=== PATIENT | male | born 1960 | race African-American/Black ===

== ENCOUNTER 2019-03-01 13:37 | Outpatient (CLI) | payer MEDICAID ==
[~2019-03-01] VITALS: Ht 190.5 cm; Wt 116.1 kg
[2019-03-01] MEDS ORDERED: ATORVASTATIN CA20 MG ORAL (15:11)
[2019-03-01] MEDS ORDERED: TRAMADOL HCL50 MG ORAL (15:11)
[2019-03-01] MEDS ORDERED: OMEPRAZOLE40 M1 ORAL (15:11)
[2019-03-01] MEDS ORDERED: ASPIRIN EC81 MG ORAL (15:11)
[2019-03-01 15:12] VITALS: BP 139/83
--- NOTE | 2019-03-25 02:15 | Consultation ---
DATE OF CONSULTATION: 03/01/2019 CHIEF COMPLAINT: Abdominal pain. HISTORY OF PRESENT ILLNESS: This is a 59-year-old male with numerous complaints, which I will dictate in a second, who was referred to us for evaluation of abdominal pain. Because of the abdominal pain, he has acid reflux. He has constipation. He has bloating. He had an endoscopy and colonoscopy before. He was told he had hiatal hernia. He has colonic polyps. He has diverticulosis. He has fatty liver. He has hemorrhoids. The patient mainly states he has a lot of pain and constipation that responds partially to Linzess. The patient had a CT in January of 2017. Also, the patient was seen in the ER and has been followed by pain management for his pain. He has been evaluated at [facility] also. He had an MRI and CT, I do not have the results of that. PAST MEDICAL HISTORY: 1. Hypertension. 2. Coronary artery disease. 3. Depression. 4. Sleep apnea. PAST SURGICAL HISTORY: Stent placement. MEDICATIONS: Tramadol, aspirin, atorvastatin, and omeprazole. ALLERGIES: No known drug allergies. FAMILY HISTORY: No family history of GI malignancies. SOCIAL HISTORY: The patient denies any tobacco, alcohol, or drug abuse. REVIEW OF SYSTEM: As dictated in HPI. PHYSICAL EXAMINATION: VITAL SIGNS: Temperature is 97.6, blood pressure 139/83, pulse 69, and respirations 20. HEENT: Normocephalic and atraumatic. Sclerae is anicteric. NECK: Supple. No obvious evidence of lymphadenopathy. CARDIOVASCULAR: Regular rate and rhythm. Plus S1 and S2. No obvious murmur. LUNGS: Clear to auscultation bilaterally. ABDOMEN: Soft. Minimal tenderness to palpation in the epigastric area. No rebound. No guarding. No peritoneal sign. EXTREMITIES: No cyanosis, no clubbing, no edema. ASSESSMENT/PLAN: The patient is an unfortunate male with numerous medical problems. He recently had a colonoscopy in August of 2018, so we are not going to repeat the colonoscopy. For the constipation, we will switch him to Trulance given the Linzess was not working. For her acid reflux disease, we are going to switch him from omeprazole to Dexilant for better coverage. The patient will continue on tramadol for pain management through his primary care physician and per his pain management. The patient above. Ed Blankenship M.D. DR: RYAN JOB#: [id number] CC:
== END 2019-03-01 15:37 | disposition home or self-care (01) ==
LOC: PAN 13:37
DX: R10.9 Unspecified abdominal pain (principal); I11.9 Hypertensive heart disease without heart failure; I25.10 Atherosclerotic heart disease of native coronary artery without angina pectoris; F32.9 Major depressive disorder, single episode, unspecified; G47.30 Sleep apnea, unspecified; R14.0 Abdominal distension (gaseous); K76.0 Fatty (change of) liver, not elsewhere classified; K63.5 Polyp of colon; K57.90 Diverticulosis of intestine, part unspecified, without perforation or abscess without bleeding; K59.00 Constipation, unspecified; Z79.82 Long term (current) use of aspirin; Z79.899 Other long term (current) drug therapy
CPT/HCPCS: 99203